=== PATIENT | female | born 1950 | race Caucasian/White ===

== ENCOUNTER 2017-02-26 06:53 | Day surgery (SDC) | payer OTHER ==
[2017-02-05 09:18] VITALS: Ht 162.6 cm; Wt 105.9 kg
--- NOTE | 2017-02-05 09:55 | PAT Medication Instructions ---
Service Date Feb 05, 2017. Current Home Medication List Ohsmoul-Snkknsxryzfkp-Aghqaelz (Excedrin Migraine), 1 TAB PO PRN Atenolol (Atenolol), 50 MG PO HS Calcium/Vitamin D (Os-Lennox 500 Plus D), 1 TAB PO BID Ergocalciferol (Vitamin D 10978 Unit), 50,000 UNIT PO WK Omeprazole (Prilosec), 20 MG PO PRN Medication Instructions For Your Scheduled Surgery Eiohexs-Twowzyvdbfwph-Vszuehau (Excedrin Migraine), 1 TAB PO PRN (takes occasionally with headaches- use with caution one week prior to surgery) - Hold the following medications the morning of surgery: Calcium/Vitamin D (Os-Lennox 500 Plus D), 1 TAB PO BID Ergocalciferol (Vitamin D 43952 Unit), 50,000 UNIT PO WK - Take the following medications the morning of surgery with a sip of water: Omeprazole (Prilosec), 20 MG PO PRN - Take the following medications as scheduled the night before surgery: Calcium/Vitamin D (Os-Lennox 500 Plus D), 1 TAB PO BID Atenolol (Atenolol), 50 MG PO HS If you have any questions please call us at [phone] or [phone] ( Rina) or [phone]
[2017-02-05 10:45] LABS: BASO % 0.3 %; BASO ABS # 0.02 K/uL (0-0.2); COMPLETE YES; IG% 0.1 %; LYMPH % 24.1 %; LYMPH ABS # 1.67 K/uL (1.2-3.4); MEAN CELL VOLUME 92.3 fL (80-100); MEAN CORPUSCULAR HEMOGLOBIN 31.2 pg (25-34); MEAN CORPUSCULAR HGB CONC 33.8 g/dl (32-36); MEAN PLATELET VOLUME 11.2 fL (7.4-10.4); MONO % 4.5 %; PLATELET COUNT 221 K/uL (130-400); RED BLOOD COUNT 4.01 M/uL (4.2-5.4); WHITE BLOOD COUNT 6.94 K/uL (4.8-10.8)
[2017-02-05 11:04] LABS: CALCIUM 8.9 mg/dl (8.5-10.1); POTASSIUM 4.4 mmol/L (3.5-5.1)
[2017-02-05 11:06] LABS: ALB/GLOB RATIO 0.9 (0.9-2)
[~2017-02-26] VITALS: Ht 162.6 cm; Wt 105.9 kg
[~2017-02-26 06:53] MED LIST: ASPI-390 PO; CALC500C70 PO; CEFAZOLIN 2000 MG/60 ML D5W IV SCH; ERGO500037 PO; LACTATED RINGER'S 1000ML 1,000 ML IV SCH; PRLSR20 PO; TNR50 PO
[2017-02-26 07:14] VITALS: BP 159/74; PULSE 70; TEMP 37.1; O2SAT 98
[2017-02-26] MEDS ORDERED: FENTANYL CITRATE INJ 50 MCG/1 ML 2 ML VIAL ONE (07:59)
[2017-02-26] MEDS ORDERED: MIDAZOLAM HCL 1 MG/ML 2ML VIAL ONE (07:59)
--- NOTE | 2017-02-26 08:28 | History & Physical Bridge Note ---
H&P Re-Evaluation Bridge Note: I have examined the patient, reviewed the History & Physical and in the interval since the performance of the History & Physical I have noted the following changes of clinical significance: No changes noted
[2017-02-26] MEDS ORDERED: BUPIVACAINE 0.5 % 5 MG/1 ML MPF 30ML VIAL ONE ×2 (08:49)
[2017-02-26] MEDS ORDERED: BACITRACIN OINT 15 GM TUBE ONE (08:49)
[2017-02-26] MEDS ORDERED: LIDOCAINE HCL 1% 20 ML VIAL ONE ×2 (08:49)
[2017-02-26] MEDS ORDERED: EpHEDrine SULFATE INJ 50 MG/ML AMP IV PRN (09:00)
[2017-02-26] MEDS ORDERED: ONDANSETRON INJ 2 MG/ML 2 ML VIAL IV PRN ×2 (09:00→11:00)
[2017-02-26] MEDS ORDERED: ATROPINE SULFATE 0.1 MG/ML 5ML SYR IV PRN (09:00)
[2017-02-26] MEDS ORDERED: NEOSTIGMINE METHYLSULFATE 5 MG/5 ML SYR ONE (09:50)
[2017-02-26] MEDS ORDERED: GLYCOPYRROLATE INJ 0.2 MG/ML VIAL ONE (09:50)
[2017-02-26] MEDS ORDERED: LIDOCAINE HCL 2% 2 ML VIAL (20MG/ML) ONE (09:50)
[2017-02-26] MEDS ORDERED: ROCURONIUM BROMIDE 10 MG/ML 5 ML VIAL ONE (09:50)
[2017-02-26] MEDS ORDERED: ONDANSETRON INJ 2 MG/ML 2 ML VIAL ONE (09:50)
[2017-02-26] MEDS ORDERED: PROPOFOL IV EMULSION 10 MG/ML 20 ML VIAL IV ONE (09:50)
[2017-02-26] MEDS ORDERED: DEXAMETHASONE SOD INJ 4 MG/ML VIAL ONE (09:50)
[2017-02-26] MEDS: FENTANYL CITRATE INJ 50 MCG/1 ML 2 ML VIAL IV PRN ×4 (10:52→11:07)
[2017-02-26] MEDS ORDERED: D5W AND 1/2NSS + 20MEQ KCL 1,000 ML IV SCH (10:59)
--- NOTE | 2017-02-26 10:59 | [facility] Post Operative Brief Note ---
Immediate Operative Summary Operative Date Feb 26, 2017. Pre-Operative Diagnosis chronic cholecysitis, umbilical hernia Post-Operative Diagnosis chronic cholecystitis, umbilical hernia Procedure(s) Performed Laparoscopic Cholecystectomy; Open Repair Umbilical Hernia, primary repair Surgeon Dr. Maulik Martin Web Merchandiser Surgeon(s) none Estimated Blood Loss 20ml Findings chronic cholecystitis, cholelithiasis, umbilical hernia Fluids (cc crystalloids) 1300ml Specimens A. Gallbladder Drains none Anesthesia general Complication(s) None Disposition Recovery Room / PACU
[2017-02-26] MEDS ORDERED: HYDROmorphone INJ 1 MG/ML SYR IV PRN (11:00)
[2017-02-26] MEDS ORDERED: OXYCODONE/ACETAMINOPHEN 5-325 TAB PO PRN (11:00)
[2017-02-26] MEDS ORDERED: OXYC-57 PO (11:02)
--- NOTE | 2017-02-26 11:05 | Discharge Instructions ---
Discharge Instructions Date of Service Feb 26, 2017. Visit Reason for Visit: Gallstones, Umbilical Hernia Discharge Discharge Diagnosis / Problem: S/P laparoscopic cholecystectomy, repair umbilical hernia Discharge Goals Goal(s): Decrease discomfort, Improve function Activity Recommendations Activity Limitations: per Instructions/Follow-up section Lifting Limitations: no more than 25 pounds Exercise/Sports Limitations: gradually increase as tolerated May Resume Sexual Activity: when tolerated Shower/Bathe: may shower/bathe in 3 days Driving or Machine Use: resume 3 days after discharge Anesthesia . Post Anesthesia Instructions: If you have had General Anesthesia or IV Sedation: * Do not drive today. * Resume driving when surgeon permits. * Do not make important decisions or sign legal documents today. * Call surgeon for: 1. Temperature elevations greater than 101 degrees F. 2. Uncontrollable pain. 3. Excessive bleeding. 4. Persistent nausea and vomiting. 5. Medication intolerance (nausea, vomiting or rash). * For nausea and vomiting use only clear liquids such as: tea, soda, bouillon until nausea subsides, then gradually increase diet as tolerated. * If you have any concerns or questions, call your surgeon's office. If physician is unavailable and it is an emergency, call 911 or go to the nearest emergency room. . Instructions / Follow-Up Instructions / Follow-Up keep all dressing on for 4 days, she can take a shower on 03/02/2017, no driving while taking pain medicine, Follow up 1 week, Diet Recommendations Recommended Home Diet: resume previous diet Procedures Procedures Performed: Laparoscopic Cholecystectomy; Open Repair Umbilical Hernia, primary repair Pending Studies Studies pending at discharge: no Medical Emergencies . Who to Call and When: Medical Emergencies: If at any time you feel your situation is an emergency, please call 911 immediately. . Non-Emergent Contact Non-Emergency issues call your: Surgeon Call Non-Emergent contact if: you have a fever, temperature is above 100.5, your pain is not controlled, your pain is worsening, wound has increased drainage, wound has increased redness . . "Provider Documentation" section prepared by Maulik Martin.
[2017-02-26 12:00] VITALS: BP 157/64; PULSE 54; TEMP 36.7; O2SAT 98
--- NOTE | 2017-02-26 12:16 | Anesthesiology Progress Note ---
Anesthesia Post Op Note Date & Time Feb 26, 2017 at 12:16 Vital Signs Pain Intensity: 3 Vital Signs Past 12 Hours Date Time Temp Pulse Resp B/P Pulse Ox O2 Delivery O2 Flow Rate FiO2 02/26/17 11:45 52 11 146/65 97 Room Air 02/26/17 11:30 36.5 54 11 149/69 96 Room Air 02/26/17 11:25 53 11 136/61 96 Room Air 02/26/17 11:15 55 13 126/56 93 Room Air 02/26/17 11:05 53 10 139/60 99 Room Air 02/26/17 10:55 57 14 136/58 99 Room Air 02/26/17 10:47 36.4 61 16 156/76 98 Room Air 02/26/17 07:14 37.1 70 20 159/74 98 Room Air Notes Mental Status: alert / awake / arousable, participated in evaluation Pt Amnestic to Procedure: Yes Nausea / Vomiting: adequately controlled Pain: adequately controlled Airway Patency, RR, SpO2: stable & adequate BP & HR: stable & adequate Hydration State: stable & adequate Anesthetic Complications: no major complications apparent
[2017-02-26 12:30] VITALS: BP 153/56; PULSE 55; O2SAT 98
--- NOTE | 2017-02-26 12:53 | Anesthesiology Progress Note ---
Anesthesia Progress Note Date of Service Feb 26, 2017. Progress Notes I was called by nursing in [facility] 1 s/p lap choly and hernia repair. Pt stated having an irritation in her R eye. Upon examination, pt's eye was slightly erythematous. She stated having "irritation behind her upper eyelid." Pt stated having no change in vision and any other symptoms. I counseled her about possibly having a corneal abrasion. I suggested erythromycin ointment for her to go home with. She preferred not to use the ointment and use warm compresses instead. The pt was otherwise satisfied with her care and was ready for discharge.
[2017-02-26 13:00] VITALS: BP 155/69; PULSE 62; TEMP 36.9; O2SAT 94
[2017-02-26 14:00] VITALS: BP 154/72; PULSE 63; TEMP 36.9; O2SAT 95
--- NOTE | 2017-02-26 14:35 | OPERATIVE REPORT ---
DATE OF OPERATION: 02/26/2017 PREOPERATIVE DIAGNOSIS: Chronic cholecystitis, cholelithiasis, umbilical hernia. POSTOPERATIVE DIAGNOSIS: Same. PROCEDURE: Laparoscopic cholecystectomy, open repair of umbilical hernia, primary repair of umbilical hernia. SURGEON: Maulik Martin M.D. ANESTHESIA: General. ESTIMATED BLOOD LOSS: About 20 mL. IV FLUIDS: 1300 mL. FINDINGS: Chronic cholecystitis, cholelithiasis. COMPLICATIONS: None. INDICATIONS FOR THE PROCEDURE: This is a 67-year-old female who presents with chronic cholecystitis with gallstones. Also, with symptomatic umbilical hernia. The patient required to do laparoscopic cholecystectomy, open repair of umbilical hernia, possible mesh. I did talk to the patient about the benefit and risk, alternate procedure. I indicated the risks may include but not limited such as bleeding, infection, injury to common bile duct, bile leak, incisional hernia, hernia recurrence, DVT, myocardial infarction, stroke and even . The patient understands. She signed informed consent and I answered all questions. DETAILS OF PROCEDURE: We brought the patient to the OR, put the patient in the supine position. The patient received 2 grams Ancef IV for prophylactic antibiotic. The patient received SCD on bilateral legs to prevent DVT. The patient received general anesthesia without difficulty. The abdomen was prepped and draped in routine sterile fashion. After time out I injected the local anesthesia by using 0.5% lidocaine mixed with 0.25% Marcaine just above the umbilical. Then I made a small incision just above umbilical, opened fascia and opened peritoneum under direct vision. I put a Carrie trocar in, connected to CO2 to create pneumoperitoneum. Flow rate is 6 liter per minute. Pressure not more than 14 mmHg. Once we get a nice pneumoperitoneum we put 10 mm camera in looked around the abdomen showing normal finding on the stomach, small bowel, large bowel, liver. Gallbladder showed chronic cholecystitis, gallbladder wall had thickening. Then, we put another 3.5 mm trocar on the right upper quadrant. Once all trocars in I put grasper in to hold the base of the gallbladder, put direction to the diaphragm and then I put another grasper in to hold the pouch over the gallbladder, put latter to expose the triangle of Calot. The cystic duct was identified and mobilized. Then I put two 5 mm metal clips on the proximal cystic duct, one on the distal cystic duct. Then, I used scissor transection the cystic duct. Rechecked no active bleeding, no leak, then the cystic artery was identified and mobilized. Then I put two 5 mm metal clips on the cystic artery proximal side and one on the distal side. Then, I used scissor transecting the cystic artery. Rechecked no active bleeding. Then I used Bovie to take down the gallbladder without difficulty. Then I put catch bag to remove the gallbladder through the catch bag. Then we reinserted Carrie trocar in creating pneumoperitoneum. Again looked around the abdomen, no active bleeding, no bile leak on the liver side and then we removed all trocars under direct vision, no active bleeding. The pneumoperitoneum was released and then I closed the fascial layer by using #1 Vicryl [id number] x2 and then mobilizing patient's umbilical hernia. I found the patient had a small umbilical hernia size about 0.8 x 0.8 cm. The hernia sac was reduced and contained fat tissue. Then I used 0 Ethibond closed the umbilical hernia [id number] x1. Rechecked no more hernia and then we closed the subcutaneous layer by using 2-0 Vicryl, put umbilical back to original location by used 2-0 Vicryl. Then using 4-0 Vicryl, closed the skin and used another 4-0 Vicryl, closed another 3.5 mm trocar site skin only. All the instrument, needle and sponge count correct x2 at the end of case. We put the dressing on. The patient tolerated the procedure well and after the procedure I did talk to the patient's family member about OR finding and procedure we did. Also, I gave them the postop care instruction, they understand. I will follow the patient in 1 week. The specimen sent to pathology. I attest to the content of the Intraoperative Record and any orders documented therein. Any exceptions are noted below. CAMILA
[2017-02-26] MEDS ORDERED: ERYTHROMYCIN OP OINT 5 MG/GM 3.5 GM TUBE OP SCH (16:00)
[2017-02-27] MEDS ORDERED: CEFAZOLIN IV 2,000 MG/60 ML D5W IV ONE (06:00)
== END 2017-02-26 14:40 | disposition home or self-care (01) ==
LOC: C.ACU 06:53
PROVIDERS: ATTEND Surgery
DX: K80.11 Calculus of gallbladder with chronic cholecystitis with obstruction (principal); K42.9 Umbilical hernia without obstruction or gangrene; I10 Essential (primary) hypertension; N39.41 Urge incontinence; K21.0 Gastro-esophageal reflux disease with esophagitis; E66.01 Morbid (severe) obesity due to excess calories; Z68.30 Body mass index [BMI] 30.0-30.9, adult

== ENCOUNTER 2025-05-24 12:11 | Inpatient (IN) ==
--- NOTE | 2025-05-24 12:48 | Emergency Department Note ---
History of Present Illness General Chief complaint: Bite Stated complaint: INFECTION FROM A POSSIBLE BUG GUILLERMO ELLSWORTH FEVE Time Seen by Provider: 05/24/25 12:29 History of Present Illness Maximum Pain Intensity: 2 This is a 75-year-old female who presents to the emergency department via private vehicle accompanied by daughter with complaints of "left upper back infection". The patient notes that for nearly a week now, she has had an infection to the left upper back. Daughter at bedside has a picture from when it first started and it was a small amount of erythema to the left upper back overlying the trapezius muscle. It has significantly increased in size. No reported trauma or injury. However the patient now notes a fever. Today temperature was 101.7 F. Patient has been on oral doxycycline since 05/22/25. Home Medications Medication Instructions Recorded Confirmed Type vhtovqh-zyvbldcskkysq-anohcwhc 250 1 tab PO PRN ##0 02/05/17 05/24/25 History mg-250 mg-65 mg tablet (Excedrin Migraine) atenolol 50 mg tablet 25 - 50 mg PO DIRECTED ##0 02/05/17 05/24/25 History calcium 500 mg (as 1 tab PO BID #0 tabs 02/05/17 05/24/25 History carbonate)-vitamin D3 15 mcg (600 unit) tablet (Os-Lennox 500 + D3) omeprazole magnesium 20 mg 20 mg PO DAILY #0 caps 02/05/17 05/24/25 History tablet,delayed release (Prilosec OTC) cholecalciferol (vitamin D3) 1,250 50,000 unit PO WK 05/24/25 05/24/25 History mcg (50,000 unit) capsule doxycycline monohydrate 100 mg 100 mg PO BID 05/24/25 05/24/25 History capsule hydrochlorothiazide 12.5 mg capsule 12.5 mg PO Q2D 05/24/25 05/24/25 History Allergies Allergy/AdvReac Type Severity Reaction Status Date / Time No Known Allergies Allergy Unverified 05/24/25 14:43 Past Med/Surg History Problem List (Updated 05/24/25 @ 22:46 by Sd Perez PA-C) Acute kidney injury superimposed on CKD (Acute) Cellulitis (Acute) Medical History GERD (gastroesophageal reflux disease) CKD (chronic kidney disease), stage III HTN (hypertension) Surgical History History of tubal ligation Hx of tonsillectomy Family History (Updated 05/24/25 @ 15:53 by Angeles Rodriguez PA-C) Other Cancer Diabetes Hypertension Social History Smoking Status: Never smoker Hx Alcohol Use: No Hx Substance Use: No Preferred Language: Turkmen Communication Ability: Effective Insulation Applicator Required: No Beliefs That Will Affect Care: None Current Living Situation: Alone Other Information That Helps Us Care for You: No Feels Safe at Home: Yes Safety Concerns: Feels Safe At This Time Assistive Devices: Denture - Upper and Glasses Review of Systems A total of 10 systems reviewed and were otherwise negative Physical Exam Vital Signs Vital Signs - 24 hr 05/24/25 12:20 05/24/25 14:08 Temperature 37.4 C Temperature Source Oral Pulse Rate 67 Pulse Rate [Finger] 61 Respiratory Rate 14 14 Respiratory Effort / Characteristics Non-Labored Spontaneous Respiratory Depth Normal Blood Pressure 131/64 Blood Pressure [Left Arm] 115/60 Blood Pressure Mean 86 Blood Pressure Mean [Left Arm] 78 Pulse Oximetry 94 95 Oxygen Delivery Method Room Air Room Air Sepsis Recent Fever Within 48 Hours Yes Sepsis New/Unexplained Change in Mental Status No Sepsis Action Taken by Nursing No Action Required VITAL SIGNS - Vital signs and nursing notes were reviewed. Stable and afebrile. GENERAL -75-year-old female appearing her stated age who is in no acute distress. Communicates well with provider and answers questions appropriately. SKIN -large erythematous region overlying the left upper back area. Approximately 3 cm in diameter darker erythematous hue with a small, subcentimeter centrally located darker region. Surrounding this initial area of erythema there is a light pinkish hue erythema that tracks over a large portion of the left upper back area to the base of the left side of the neck. No fluctuance or crepitus. Picture as below. HEAD - NC/AT. EYES - Sclera anicteric. EARS -within normal limits without evidence of surrounding infection other than as described above on the neck/upper back. NOSE - Midline and without cyanosis. No epistaxis or purulent drainage noted. Septum midline without deviation or septal hematoma noted. MOUTH/OROPHARYNX - Without perioral cyanosis. Buccal mucosa pink and moist and without leukoplakia. Tongue midline with equal elevation of palate bilaterally. No tonsillar hypertrophy, erythema, or exudates noted. Good dentition noted. NECK - Neck with FROM. No nuchal rigidity. LUNGS - Chest wall symmetric without accessory muscle use, intercostals retractions, or central cyanosis. Normal vesicular breath sounds CTA B/L. No wheezes, rales, or rhonchi appreciated. CARDIAC - RRR EXTREMITIES - +5/5 strength noted in UE/LE bilaterally. NEUROLOGIC - Cranial nerves II through XII grossly intact. PSYCH -alert, oriented and pleasant on exam. Course Administered Medications Heparin Sodium (Porcine) (Heparin Sod 5,000 Unit/0.5 Ml Vial) 5,000 units SQ Q8 MARI Stop: 06/23/25 21:59 Last Admin: 05/24/25 21:22 Dose: Not Given Documented By: WILFREDO Sodium Chloride (Nss) 1,000 mls @ 80 mls/hr IV .[id number] MARI Stop: 05/25/25 16:25 Last Infusion: 05/24/25 16:50 Dose: 80 mls/hr Documented By: Admin: 05/24/25 15:44 Dose: 125 mls/hr Documented By: Discontinued Medications Ceftriaxone Sodium (Rocephin) 2,000 mg in 50 mls @ 100 mls/hr IV NOW STA Stop: 05/24/25 13:50 Last Infusion: 05/24/25 14:35 Dose: Infused Documented By: Admin: 05/24/25 14:05 Dose: 100 mls/hr Documented By: JACLYN Medical Decision Making Laboratory Data 05/24/25 13:01 05/24/25 13:01 Lab Results 05/24/25 Range/Units 13:01 WBC 5.52 (4.8-10.8) K/ul RBC 3.80 L (4.20-5.40) M/uL Hgb 11.9 L (12.0-16.0) g/dl Hct 35.1 L (37.0-47.0) % MCV 92.4 (80.0-100.0) fL MCH 31.3 (25.0-34.0) pg MCHC 33.9 (32.0-36.0) g/dL RDW Std Deviation 41.7 (36.4-46.3) fL RDW Coeff of Ramakrishna 12.4 (11.5-14.5) % Plt Count 165 (130-400) K/uL MPV 10.1 (9.4-12.4) fL Immature Gran % (Auto) 0.4 % Neut % (Auto) 80.0 % Lymph % (Auto) 11.1 % Petroleum % (Auto) 8.3 % Eos % (Auto) 0.0 % Baso % (Auto) 0.2 % Neut # (Auto) 4.42 (1.40-6.50) K/uL Lymph # (Auto) 0.61 L (1.20-3.40) K/uL Petroleum # (Auto) 0.46 (0.11-0.59) K/uL Eos # (Auto) 0.00 (0.00-0.50) K/uL Baso # (Auto) 0.01 (0.00-0.20) K/uL Immature Gran # (Auto) 0.02 (0.01-0.20) K/uL Sodium 136 (136-145) mmol/L Potassium 3.9 (3.5-5.1) mmol/L Chloride 106 (98-107) mmol/L Carbon Dioxide 22 (21-32) mmol/L Anion Gap 8 (3-11) BUN 16 (6-23) mg/dl Creatinine 1.39 H (0.6-1.2) mg/dl Est Cr Clr Drug Dosing 41.0 ml/min eGFR 39.08 BUN/Creatinine Ratio 11.5 (10-20) Glucose 111 H (70-99(Fasting)) mg/dl Lactate 0.7 (0.4-2.0) mmol/L Calcium 9.1 (8.6-10.3) mg/dl Total Bilirubin 0.7 (0.2-1.0) mg/dl AST 25 (13-39) U/L ALT 15 (7-52) U/L Alkaline Phosphatase 70 (34-104) U/L Total Protein 6.6 (6.0-8.3) gm/dl Albumin 3.5 (3.4-5.0) gm/dl Globulin 3.1 (2.5-4.0) gm/dl Albumin/Globulin Ratio 1.1 (0.9-2) Procalcitonin 0.80 H (0-0.5) ng/ml Lyme Disease Screen Negative (Negative) MDM Narrative Patient was seen and evaluated as above in room D01. Review was performed of triage nursing notes and vital signs. After obtaining a thorough history and physical examination the above work up was performed. Patient presents for evaluation of progressively worsening left upper back erythema, edema and discomfort now with associated fever. She has been on antibiotics over the past few days. Options of care were discussed with the patient as well as daughter at bedside. IV access was established. Labs were drawn. No leukocytosis. Hemoglobin minimally decreased at 11.9. There is mild elevation of creatinine 1.39. Hyperglycemia 111. Procalcitonin elevated at 0.80. Lyme testing is negative. Lactate is normal. Daughter does provide a picture from when the erythema first began and it was quite small. It has certainly enlarged. There is also reported fever. At this time with the patient having progressively worsening erythema, discomfort and now fever despite oral antibiotics I do believe that further evaluation and management in the inpatient setting is warranted. Case discussed with the hospitalist. Please refer to further documentation regarding her stay. Verbal consent was obtained and I did obtain a picture to place here in the EMR within the PE section. Please refer to the picture. IV antibiotics ordered. GCS: 15 In the evaluation and treatment of this patient the following differential diagnoses were entertained: Cellulitis, erythema migrans, thermal injury, allergic reaction, among others. Impression & Plan Cellulitis, Acute kidney injury superimposed on CKD Discharge Plan Visit Data Chief Complaint: Bite Stated Complaint: INFECTION FROM A POSSIBLE BUG GUILLERMO ELLSWORTH FEVE ED Provider: Markus Salgado ED Midlevel Provider: Sd Perez Discharge Problem: Cellulitis, Acute kidney injury superimposed on CKD Patient Disposition: Admitted As Inpatient Condition: Good Discharge Instructions Interventions: ED Discharge Assessment Last Done: 05/24/25 15:57
--- NOTE | 2025-05-24 12:53 | Emergency Department Note ---
ED Visit Note I was consulted by the Advanced Practice Provider. I personally made or approved the management plan for the patient. I performed a substantive portion of the visit. This includes the aspects of: MDM. .
[2025-05-24 13:28] LABS: Basophils # (auto) 0.01 K/uL (0.00-0.20); Basophils % (auto) 0.2 %; Hematocrit (blood only) 35.1 % (37.0-47.0); Hemoglobin 11.9 g/dl (12.0-16.0); Immature Granulocytes # (auto) 0.02 K/uL (0.01-0.20); Immature Granulocytes % (auto) 0.4 %; Lymphocytes # (auto) 0.61 K/uL (1.20-3.40); Lymphocytes % (auto) 11.1 %; Mean Corpuscular Hemoglobin 31.3 pg (25.0-34.0); Mean Corpuscular Hgb Conc 33.9 g/dL (32.0-36.0); Mean Corpuscular Volume 92.4 fL (80.0-100.0); Mean Platelet Volume 10.1 fL (9.4-12.4); Monocytes # (auto) 0.46 K/uL (0.11-0.59); Monocytes % (auto) 8.3 %; Neutrophils # (auto) 4.42 K/uL (1.40-6.50); Platelet Count 165 K/uL (130-400); RDW Coefficient of Variation 12.4 % (11.5-14.5); RDW Standard Deviation 41.7 fL (36.4-46.3); White Blood Count 5.52 K/ul (4.8-10.8)
[2025-05-24 13:46] LABS: Albumin Globulin Ratio 1.1 (0.9-2); Albumin Level 3.5 gm/dl (3.4-5.0); BUN Creatinine Ratio 11.5 (10-20); Bilirubin,Total 0.7 mg/dl (0.2-1.0); Calcium 9.1 mg/dl (8.6-10.3); Globulin 3.1 gm/dl (2.5-4.0); Potassium 3.9 mmol/L (3.5-5.1); Total Protein 6.6 gm/dl (6.0-8.3)
[2025-05-24] MEDS: cefTRIAXone SODIUM 2,000 MG/50 ML BAG IV STA (14:05)
[2025-05-24 14:18] LABS: Lyme Screen Rflx Confirmation Negative (Negative)
--- NOTE | 2025-05-24 15:11 | History & Physical Report ---
Date of Service May 24, 2025 Assessment & Plan (1) Cellulitis: Plan: Patient is a 75-year-old female with PMH HTN, CKD III, GERD, morbid obesity presented to ER with c/o progressive redness to shoulder x 6 days with 3 days fevers. Day 3 of outpatient doxycycline. In ER afebrile, no leukocytosis, lactate WNL, procalcitonin: 0.8 Lyme disease screen negative Blood culture pending In ER given Rocephin 2GM IV Continue Rocephin Gentle IVF CBC, BMP in am (2) Acute kidney injury superimposed on CKD: (3) CKD (chronic kidney disease), stage III: Plan: Cr: 1.39. Cr 0.9 on 05/16/25, 1.0 on 04/02/24 Pt has had decreased oral intake Gentle IVF Monitor renal functions Hold home HCTZ (4) HTN (hypertension): Plan: Stable Hold home HCTZ continue atenolol (5) GERD (gastroesophageal reflux disease): Plan: Continue PPI DVT Prophylaxis Heparin SQ Admit med surg Full Code as per discussion with pt Follows with Dr Cinthya Han for routine care Pt was seen and care coordinated with Dr Arita. See addendum I spent a total of 60 minutes reviewing notes, outpatient records, labs, medication, coordinating, documenting and providing care for this patient excluding time spent in the performance of separately billed services and excluding time spent by another provider/QHP. History of Present Illness Chief Complaint: redness left shoulder Primary Care Provider: Cinthya Han MD Patient is a 75-year-old female with PMH HTN, CKD III, GERD, morbid obesity presented to ER with c/o redness to shoulder x 6 days. Patient states six days ago had pimple like area to left posterior shoulder/neck region. She denies picking at area and denies any noted discharge. States has had progressive erythema surrounding area and area is tender. 3 days ago started with tactile fevers. Having decreased appetite and decreased oral intake. On 05/22/25 seen at urgent care and prescribed doxycycline. Taking Tylenol for fever but continues. Today recorded fever close to 102F. States having some dry heaves since starting doxycycline. Denies vomiting or abdominal pain. Denies using any topical medications. Denies any known insect bite or tick bite. Denies history MRSA. Denies diarrhea, constipation, VAUGHN, dizziness, syncope, neck pain, CP, SOB, cough, sore throat, rhinorrhea, abdominal pain, weakness, extremity weakness, extremity edema, rashes, urinary symptoms. Allergies Allergy/AdvReac Type Severity Reaction Status Date / Time No Known Allergies Allergy Unverified 05/24/25 14:43 Home Medications Medication Instructions Recorded Confirmed Type [id number] 250 1 tab PO PRN ##0 02/05/17 05/24/25 History mg-250 mg-65 mg tablet (Excedrin Migraine) atenolol 50 mg tablet 25 - 50 mg PO DIRECTED ##0 02/05/17 05/24/25 History calcium 500 mg (as 1 tab PO BID #0 tabs 02/05/17 05/24/25 History carbonate)-vitamin D3 15 mcg (600 unit) tablet (Os-Lennox 500 + D3) omeprazole magnesium 20 mg 20 mg PO DAILY #0 caps 02/05/17 05/24/25 History tablet,delayed release (Prilosec OTC) cholecalciferol (vitamin D3) 1,250 50,000 unit PO WK 05/24/25 05/24/25 History mcg (50,000 unit) capsule doxycycline monohydrate 100 mg 100 mg PO BID 05/24/25 05/24/25 History capsule hydrochlorothiazide 12.5 mg capsule 12.5 mg PO Q2D 05/24/25 05/24/25 History Past Med/Surg History Problem List (Updated 05/24/25 @ 15:39 by Angeles Rodriguez PA-C) Acute kidney injury superimposed on CKD Cellulitis Medical History (Updated 05/24/25 @ 15:39 by Angeles Rodriguez PA-C) GERD (gastroesophageal reflux disease) CKD (chronic kidney disease), stage III HTN (hypertension) Surgical History (Updated 05/24/25 @ 15:53 by Angeles Rodriguez PA-C) History of tubal ligation Hx of tonsillectomy Family History (Updated 05/24/25 @ 15:53 by Angeles Rodriguez PA-C) Other Cancer Diabetes Hypertension Social History (Updated 05/24/25 @ 15:53 by Angeles Rodriguez PA-C) Smoking Status: Never smoker Hx Alcohol Use: No Hx Substance Use: No Preferred Language: Bulgarian Communication Ability: Effective 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 Beliefs That Will Affect Care: None Current Living Situation: Alone Other Information That Helps Us Care for You: No Feels Safe at Home: Yes Safety Concerns: Feels Safe At This Time Assistive Devices: Denture - Upper and Glasses Review of Systems Review of Systems: All systems reviewed & are unremarkable except as noted in HPI & below Physical Exam Physical Exam: General: no distress, obese elderly female Head: normocephalic, atraumatic Eyes: conjunctiva non-injected, anicteric ENT: normal inspection external ears, nose, mucous membranes moist Neck: supple, trachea midline, non-tender Lungs: clear, no respiratory distress, no wheezing/rhonchi/rales CV: RRR, no murmur, BLE large without pitting pretibial edema Abd: normal BS, soft, non-tender Ext: no cyanosis, no calf tenderness Neuro: A&O x 3, no focal deficits noted, normal affect Skin: +Erythema with central scab with firmness however without fluctuance at this time to left posterior upper shoulder and posterior neck, +warm and tender to palpation. warm, dry Results & Data Results & Data Vital Signs (Past 12 Hours) Vital Signs Temp Pulse Pulse Resp BP BP Pulse Ox 05/24/25 14:08 61 14 115/60 95 05/24/25 12:20 37.4 C 67 14 131/64 94 O2 Del Method 05/24/25 14:08 Room Air 05/24/25 12:20 Room Air Laboratory Results Short CBC 05/24/25 Range/Units 13:01 WBC 5.52 (4.8-10.8) K/ul Hgb 11.9 L (12.0-16.0) g/dl Hct 35.1 L (37.0-47.0) % Plt Count 165 (130-400) K/uL BMP 05/24/25 13:01 Sodium 136 Potassium 3.9 Chloride 106 Carbon Dioxide 22 BUN 16 Creatinine 1.39 H Glucose 111 H Calcium 9.1 Liver Function 05/24/25 Range/Units 13:01 Total Bilirubin 0.7 (0.2-1.0) mg/dl AST 25 (13-39) U/L ALT 15 (7-52) U/L Alkaline Phosphatase 70 (34-104) U/L Albumin 3.5 (3.4-5.0) gm/dl Supervising Physician Co-Signing Physician Notes 75-year-old female with PMH HTN, CKD III, GERD, morbid obesity presented to ER with c/o redness to lt upper back x 6 days. It started out like pimple, erythema increased w/ increasing tenderness, had subjective fever, was evaled at urgent care 2 d ago, dc'd on doxy, it continued to worsen and hence presented to ED. Today had fever shy of 102F per pt's dtr at bedside. Denies bug bite, trauma, not sure if she might have picked on her skin. Pt complaints of poor appetite. CBC fairly ok, Cr elevated (baseline around 1), procal elevated, lactate nl. lym e scrn neg. Lt upper back cellulitis: ceftriaxone, bl cx, probiotic. monitor. EDDIE, likely prerenal 2/2 poor appetite, gentle ivf nss at 80 ml/hr x 2 bags. bmp in am. hold hctz. On exam: on RA, left upper back erythema surrounding central scab, about 7x 8 cm, warm, mildly tender, no fluctuance or drainage. rest of exam as above. Time spent independently: 22 min. I have seen and examined the patient and have discussed the case with the provider above. I agree with the assessment and plan as stated.
[2025-05-24] MEDS: SODIUM CHLORIDE 0.9% 1,000 ML IV SCH (15:44)
[2025-05-24] MEDS ORDERED: POLYETHYLENE (MIRALAX) 17 GM PACK PO PRN (16:36)
[2025-05-24] MEDS ORDERED: ONDANSETRON INJ 2 MG/ML 2 ML VIAL IV PRN (16:36)
[2025-05-24] MEDS ORDERED: HEPARIN SOD 5,000 UNIT/0.5 ML VIAL SQ SCH (21:00)
[2025-05-24] MEDS: HEPARIN SOD 5,000 UNIT/0.5 ML VIAL SQ SCH (21:22)
[2025-05-25] MEDS: ACETAMINOPHEN 325 MG TAB PO PRN (00:42)
[2025-05-25 06:32] LABS: Hematocrit (blood only) 32.1 % (37.0-47.0); Hemoglobin 10.7 g/dl (12.0-16.0); Mean Corpuscular Hemoglobin 31.5 pg (25.0-34.0); Mean Corpuscular Hgb Conc 33.3 g/dL (32.0-36.0); Mean Corpuscular Volume 94.4 fL (80.0-100.0); Mean Platelet Volume 10.2 fL (9.4-12.4); Platelet Count 152 K/uL (130-400); RDW Coefficient of Variation 12.4 % (11.5-14.5); RDW Standard Deviation 42.9 fL (36.4-46.3); White Blood Count 4.14 K/ul (4.8-10.8)
[2025-05-25 06:52] LABS: Calcium 8.7 mg/dl (8.6-10.3); Creatinine Clr Calc Pharmacy 50.4 ml/min; Potassium 3.8 mmol/L (3.5-5.1)
[2025-05-25] MEDS: PANTOprazole 40 MG TAB PO SCH (07:40)
[2025-05-25] MEDS: ATENOLOL 50 MG TABLET PO SCH (07:40)
[2025-05-25] MEDS ORDERED: diphenhydrAMINE HCL 25 MG/10 ML UDC PO PRN (11:03)
[2025-05-25] MEDS: cefTRIAXone SODIUM 2,000 MG/50 ML BAG IV SCH (13:00)
--- NOTE | 2025-05-25 15:00 | Hospitalist Progress Note ---
Date of Service May 25, 2025 Assessment & Plan (1) Cellulitis: Plan: Patient is a 75-year-old female with PMH HTN, CKD III, GERD, morbid obesity presented to ER with c/o progressive redness to shoulder x 6 days with 3 days fevers. Day 3 of outpatient doxycycline. 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 DVT Prophylaxis Heparin SQ CODE STATUS Full code Admission and Anticipated Discharge Date Admission Date: May 25, 2025 Subjective Patient is seen and examined at bedside Reports rash on upper back which is slowly improving Also reports having some itchiness at the area Eager to get discharged Denies any chest pain, dyspnea, nausea, vomiting, abdominal pain Review of Systems Review of Systems: All systems reviewed & are unremarkable except as noted in Subjective Physical Exam Physical Exam: Physical Exam: Vitals signs as noted above General Appearance:Obese, no apparent distress Head: normocephalic, Atraumatic Eyes: normal inspection, EOMI Neck: supple, Trachea midline Respiratory/Chest: Normal breath sounds, CTA, No accessory muscle use Cardiovascular: S1, S2, +murmur Abdomen/GI:Soft, Non tender, Bowel sounds present Extremities/Musculoskeletal:normal inspection, Trace edema Neurologic/Psych:AAOX3, grossly no focal neurological deficits Skin: normal color, warm,+ Erythematous rash with central scab on shoulder/back Results & Data Results & Data Vital Signs (Past 12 Hours) Vital Signs Temp Pulse Resp BP Pulse Ox O2 Del Method 05/25/25 14:27 36.8 C 67 16 118/69 95 Room Air 05/25/25 07:10 Room Air 05/25/25 06:47 36.8 C 70 16 109/57 L 97 Room Air Laboratory Results Short CBC 05/25/25 Range/Units 05:22 WBC 4.14 L (4.8-10.8) K/ul Hgb 10.7 L (12.0-16.0) g/dl Hct 32.1 L (37.0-47.0) % Plt Count 152 (130-400) K/uL [facility] 05/25/25 05:22 Sodium 141 Potassium 3.8 Chloride 111 H Carbon Dioxide 23 BUN 17 Creatinine 1.13 Glucose 89 Calcium 8.7
[2025-05-25 19:49] VITALS: O2SAT 97
[2025-05-26 06:37] LABS: Hematocrit (blood only) 32.2 % (37.0-47.0); Hemoglobin 10.8 g/dl (12.0-16.0); Mean Corpuscular Hemoglobin 31.5 pg (25.0-34.0); Mean Corpuscular Hgb Conc 33.5 g/dL (32.0-36.0); Mean Corpuscular Volume 93.9 fL (80.0-100.0); Mean Platelet Volume 10.2 fL (9.4-12.4); Platelet Count 178 K/uL (130-400); RDW Coefficient of Variation 12.4 % (11.5-14.5); Red Blood Count 3.43 M/uL (4.20-5.40)
[2025-05-26 07:02] LABS: BUN Creatinine Ratio 16.8 (10-20); Calcium 8.7 mg/dl (8.6-10.3); Creatinine Clr Calc Pharmacy 50.4 ml/min; Potassium 3.9 mmol/L (3.5-5.1)
[2025-05-26 07:08] VITALS: BP 124/57; PULSE 69; RESP 16; TEMP 98.6
[2025-05-26] MEDS: cefTRIAXone SODIUM 2,000 MG/50 ML BAG IV SCH (11:30)
--- NOTE | 2025-05-26 11:46 | Hospitalist Progress Note ---
Date of Service May 26, 2025 Assessment & Plan (1) Cellulitis: Plan: Patient is a 75-year-old female with PMH HTN, CKD III, GERD, morbid obesity presented to ER with c/o progressive redness to shoulder x 6 days with 3 days fevers. Day 3 of outpatient doxycycline. Shoulder/upper back cellulitis --Procalcitonin mildly elevated --Normal lactate levels --Lyme screen negative --Blood cultures: No growth to date --Nasal MRSA negative Continue IV Rocephin>> transition to oral antibiotics on discharge to complete the course Received IV fluids Clinically improved Plan to discharge home today (2) Acute kidney injury superimposed on CKD: (3) CKD (chronic kidney disease), stage III: Plan: EDDIE on CKD III Creatinine levels improved to 1.13 Received IV fluids Hold HCTZ for now Monitor renal function Avoid nephrotoxic agents as able Creatinine 1.1 today (4) HTN (hypertension): Plan: Stable Hold home HCTZ continue atenolol Monitor blood pressure (5) GERD (gastroesophageal reflux disease): Plan: Continue PPI 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 DVT Prophylaxis Heparin SQ CODE STATUS Full code Disposition Home Admission and Anticipated Discharge Date Admission Date: May 25, 2025 Subjective Patient is seen and examined at bedside Rash on upper back much improved No other complaints Eager to get discharged Denies any chest pain, dyspnea, nausea, vomiting, abdominal pain Review of Systems Review of Systems: All systems reviewed & are unremarkable except as noted in Subjective Physical Exam Physical Exam: Physical Exam: Vitals signs as noted above General Appearance:Obese, no apparent distress Head: normocephalic, Atraumatic Eyes: normal inspection, EOMI Neck: supple, Trachea midline Respiratory/Chest: Normal breath sounds, CTA, No accessory muscle use Cardiovascular: S1, S2, +murmur Abdomen/GI:Soft, Non tender, Bowel sounds present Extremities/Musculoskeletal:normal inspection, Trace edema Neurologic/Psych:AAOX3, grossly no focal neurological deficits Skin: normal color, warm,+ Erythematous rash with central scab on shoulder/back Results & Data Results & Data Vital Signs (Past 12 Hours) Vital Signs Temp Pulse Resp BP Pulse Ox O2 Del Method 05/26/25 07:07 37.0 C 69 16 124/57 L 97 Room Air 05/26/25 07:05 Room Air Laboratory Results Short CBC 05/26/25 Range/Units 05:28 WBC 3.90 L (4.8-10.8) K/ul Hgb 10.8 L (12.0-16.0) g/dl Hct 32.2 L (37.0-47.0) % Plt Count 178 (130-400) K/uL [facility] 05/26/25 05:28 Sodium 142 Potassium 3.9 Chloride 113 H Carbon Dioxide 22 BUN 19 Creatinine 1.13 Glucose 105 H Calcium 8.7
--- NOTE | 2025-05-26 11:56 | Discharge Summary ---
Date of Service May 26, 2025 Admission HPI Per Admitting Provider Patient is a 75-year-old female with PMH HTN, CKD III, GERD, morbid obesity presented to ER with c/o redness to shoulder x 6 days. Patient states six days ago had pimple like area to left posterior shoulder/neck region. She denies picking at area and denies any noted discharge. States has had progressive erythema surrounding area and area is tender. 3 days ago started with tactile fevers. Having decreased appetite and decreased oral intake. On 05/22/25 seen at urgent care and prescribed doxycycline. Taking Tylenol for fever but continues. Today recorded fever close to 102F. States having some dry heaves since starting doxycycline. Denies vomiting or abdominal pain. Denies using any topical medications. Denies any known insect bite or tick bite. Denies history MRSA. Denies diarrhea, constipation, VAUGHN, dizziness, syncope, neck pain, CP, SOB, cough, sore throat, rhinorrhea, abdominal pain, weakness, extremity weakness, extremity edema, rashes, urinary symptoms. Admission Exam Per Admitting Provider General: no distress, obese elderly female Head: normocephalic, atraumatic Eyes: conjunctiva non-injected, anicteric ENT: normal inspection external ears, nose, mucous membranes moist Neck: supple, trachea midline, non-tender Lungs: clear, no respiratory distress, no wheezing/rhonchi/rales CV: RRR, no murmur, BLE large without pitting pretibial edema Abd: normal BS, soft, non-tender Ext: no cyanosis, no calf tenderness Neuro: A&O x 3, no focal deficits noted, normal affect Skin: +Erythema with central scab with firmness however without fluctuance at this time to left posterior upper shoulder and posterior neck, +warm and tender to palpation. warm, dry Principal Diagnosis Cellulitis Acute kidney injury on CKD stage III Discharge Data Allergies Allergy/AdvReac Type Severity Reaction Status Date / Time No Known Allergies Allergy Unverified 05/24/25 14:43 Consultations 05/24/25 14:01 ED Decision to Admit Stat Procedures Performed Laboratory Results WBC 3.90 K/ul (4.8-10.8) L 05/26/25 05:28 RBC 3.43 M/uL (4.20-5.40) L 05/26/25 05:28 Hgb 10.8 g/dl (12.0-16.0) L 05/26/25 05: Hct 32.2 % (37.0-47.0) L 05/26/25 05: MCV 93.9 fL (80.0-100.0) 05/26/25 05: MCH 31.5 pg (25.0-34.0) 05/26/25 05: MCHC 33.5 g/dL (32.0-36.0) 05/26/25 05: RDW Std Deviation 43.0 fL (36.4-46.3) 05/26/25 05: RDW Coeff of Ramakrishna 12.4 % (11.5-14.5) 05/26/25: Plt Count 178 K/uL (130-400) 05/26/25 05: MPV 10.2 fL (9.4-12.4) 05/26/25 05: Immature Gran % (Auto) 0.4 % 05/24/25 13:01 Neut % (Auto) 80.0 % 05/24/25 13:01 Lymph % (Auto) 11.1 % 05/24/25 13:01 Hutchinson % (Auto) 8.3 % 05/24/25 13:01 Eos % (Auto) 0.0 % 05/24/25 13:01 Baso % (Auto) 0.2 % 05/24/25 13:01 Neut # (Auto) 4.42 K/uL (1.40-6.50) 05/24/25 13:01 Lymph # (Auto) 0.61 K/uL (1.20-3.40) L 05/24/25 13:01 Hutchinson # (Auto) 0.46 K/uL (0.11-0.59) 05/24/25 13:01 Eos # (Auto) 0.00 K/uL (0.00-0.50) 05/24/25 13:01 Baso # (Auto) 0.01 K/uL (0.00-0.20) 05/24/25 13:01 Immature Gran # (Auto) 0.02 K/uL (0.01-0.20) 05/24/25 13:01 Sodium 142 mmol/L (136-145) 05/26/25 05:28 Potassium 3.9 mmol/L (3.5-5.1) 05/26/25 05:28 Chloride 113 mmol/L (98-107) H 05/26/25 05:28 Carbon Dioxide 22 mmol/L (21-32) 05/26/25 05:28 Anion Gap 7 (3-11) 05/26/25 05:28 BUN 19 mg/dl (6-23) 05/26/25 05:28 Creatinine 1.13 mg/dl (0.6-1.2) 05/26/25 05:28 Est Cr Clr Drug Dosing 50.4 ml/min 05/26/25 05:28 eGFR 50.11 05/26/25 05:28 BUN/Creatinine Ratio 16.8 (10-20) 05/26/25 05:28 Glucose 105 mg/dl (70-99(Fasting)) H 05/26/25 05:28 Lactate 0.7 mmol/L (0.4-2.0) 05/24/25 13:01 Calcium 8.7 mg/dl (8.6-10.3) 05/26/25 05:28 Total Bilirubin 0.7 mg/dl (0.2-1.0) 05/24/25 13:01 AST 25 U/L (13-39) 05/24/25 13:01 ALT 15 U/L (7-52) 05/24/25 13:01 Alkaline Phosphatase 70 U/L (34-104) 05/24/25 13:01 Total Protein 6.6 gm/dl (6.0-8.3) 05/24/25 13:01 Albumin 3.5 gm/dl (3.4-5.0) 05/24/25 13:01 Globulin 3.1 gm/dl (2.5-4.0) 05/24/25 13:01 Albumin/Globulin Ratio 1.1 (0.9-2) 05/24/25 13:01 Procalcitonin 0.80 ng/ml (0-0.5) H 05/24/25 13:01 Nasal Screen MRSA (PCR) Negative (Negative) 05/25/25 11:20 Lyme Disease Screen Negative (Negative) 05/24/25 13:01 Hospital Course (1) Cellulitis: Patient is a 75-year-old female with PMH HTN, CKD III, GERD, morbid obesity presented to ER with c/o progressive redness to shoulder x 6 days with 3 days fevers. Day 3 of outpatient doxycycline. Shoulder/upper back cellulitis --Procalcitonin mildly elevated --Normal lactate levels --Lyme screen negative --Blood cultures: No growth to date --Nasal MRSA negative Continue IV Rocephin>> transition to oral antibiotics on discharge to complete the course Received IV fluids Clinically improved Plan to discharge home today (2) Acute kidney injury superimposed on CKD: (3) CKD (chronic kidney disease), stage III: EDDIE on CKD III Creatinine levels improved to 1.13 Received IV fluids Hold HCTZ for now Monitor renal function Avoid nephrotoxic agents as able Creatinine 1.1 today (4) HTN (hypertension): Stable Hold home HCTZ continue atenolol Monitor blood pressure (5) GERD (gastroesophageal reflux disease): Continue PPI 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 DVT Prophylaxis Heparin SQ CODE STATUS Full code Disposition Home Total Time Total Time Spent Total Time Spent (In Minutes): 49 minutes Discharge Plan Discharge Items Patient Disposition: Home - Self-Care Reason For Visit: CELLULITIS Discharge Diagnosis: Cellulitis Acute kidney injury on CKD stage III Condition on Discharge: Good Activity: Per Instructions section Exercise/Sports: Gradually increase as tolerated Non-emergency contact: Primary Care Provider Call non-emergency contact if: you have any medication questions, your symptoms worsen, your pain is concerning for you and you have a fever Follow-up/Referrals: Cinthya Han MD [Primary Care Provider] - (Date & Time 06/01/2025 10:40 AM Provider: Jennifer Sanchez PA-C General Internal Medicine [facility] ) Diet: Regular Addtl Attending Provider Instructions: Follow-up with your primary care physician Dr. Cinthya Han on 06/01/2025 10:40 AM Your final blood cultures are pending at the time of discharge. Follow-up with your physician for results. -- Complete the antibiotic course doxycycline 100 mg twice a day for 3 more days as previously prescribed --Start taking Keflex 500 mg 4 times a day as prescribed (start taking from 05/26/25) Seek immediate medical attention if your symptoms reoccur or worsen Please review medication list provided on discharge for any medication changes as instructed. Please call if you have any questions or problems. You can reach a [facility] hospitalist on duty at [facility] 24 hours a day by calling [phone] Pending Studies at Discharge: Yes Studies:: Blood Cultures Stand-Alone Forms: My [facility], Smoking Cessation Medications and DC Order Prescriptions: New cephalexin 500 mg capsule 500 mg PO QID 5 Days Qty: 20 0RF Advanced Probiotic 625 mg (10 billion cell) Capsule 1 cap PO DAILY Qty: 10 0RF Continued atenolol 50 mg Tablet 25 - 50 mg PO DIRECTED Qty: 0 Rx Instructions: Take 50mg by mouth in the morning and 25mg by mouth in the evening calcium carbonate-vitamin D3 [Os-Lennox 500 + D3] 500 mg-15 mcg (600 unit) Tablet 1 tab PO BID Qty: 0 Rx Instructions: Unable to verify OTC meds at this date/time. Excedrin Migraine 250-250-65 mg Tablet 1 tab PO PRN Qty: 0 Rx Instructions: Unable to verify OTC meds at this date/time. omeprazole magnesium [Prilosec OTC] 20 mg Tablet,Delayed Release (Dr/Ec) 20 mg PO DAILY Qty: 0 Rx Instructions: Unable to verify OTC meds at this date/time. doxycycline monohydrate 100 mg capsule 100 mg PO BID Rx Instructions: Start Date 05/22/25 x10 day supply cholecalciferol (vitamin D3) 1,250 mcg (50,000 unit) capsule 50,000 unit PO WK hydrochlorothiazide 12.5 mg capsule 12.5 mg PO Q2D Rx Instructions: Patient states doesn't take regularly Discharge Orders: Discharge Order (Routine); Ordered 05/26/25 Ordered By: Domingo Giles Admission Data Admit Date/Time: 05/25/25 12:03 Attending Provider: Domingo Giles Admit Provider: Domingo Giles Primary Care Provider: Cinthya Han Other Providers: Kirill Arita
[2025-05-26] MEDS: ADVANCED PROBIOTIC 625 MG CAPSULE PO SCH (12:24)
== END 2025-05-26 13:16 | disposition home or self-care (01) | DRG 603 ==
LOC: ED 12:11 → 3E 12:11 → SUATTDRO 15:15 → 3E 15:57